=== PATIENT | female | born 1955 | race Caucasian/White ===

== ENCOUNTER 2017-06-17 06:10 | Day surgery (SDC) | payer BC ==
--- NOTE | 2017-06-10 23:32 | HP ---
HISTORY AND PHYSICAL: DATE OF OFFICE VISIT: 06/04/17 DATE OF SURGERY/ADMISSION: 06/17/17 ATTENDING SURGEON: Dr. Tracee Navarrete * (DICTATED BY JUAN JOSE MARTINS) PROCEDURE: Left knee arthroscopy with partial medial meniscectomy, possible chondroplasty, possible synovectomy. CHIEF COMPLAINT: Left knee pain. HISTORY OF PRESENT ILLNESS: The patient is a very pleasant 62-year-old female with a history of 3 weeks of severe left knee pain and she recently underwent an MRI, which showed horizontal tear in the body and horn of medial meniscus. She has tried ambulating with a cane and using Motrin; however, the pain continued and has elected to undergo an arthroscopic partial medial meniscectomy by Dr. Tracee Navarrete on 06/17/17. PAST MEDICAL HISTORY: 1. Depression. 2. Hypercholesterolemia. 3. Hypothyroidism. 4. Hypertension. 5. Asthma. 6. Obstructive sleep apnea. 7. GERD. PAST SURGICAL HISTORY: Negative. MEDICATIONS: 1. Bupropion HCl ER 300 mg 1 tablet in the morning. 2. Fluoxetine 20 mg 1 tablet by mouth daily. 3. Albuterol 0.63 mg/3 mL 1 treatment every 4 hours as needed. 4. Rabeprazole 20 mg 1 tablet in the morning. 5. Synthroid 100 mcg 1 tablet by mouth daily. 6. Montelukast sodium 10 mg 1 tablet by mouth daily. 7. Lorazepam 0.5 mg p.r.n. for anxiety. 8. Xopenex HFA 45 mcg/ACT inhaled 2 puffs by mouth ever 4 hours as needed. 9. Dymista 137/50 mcg/ACT 1 spray in each nostril daily. 10. Franca allergy medication 50 mg 1 tablet by mouth p.r.n. 11. Vitamin D supplementation 1 tablet by mouth daily. 12. Amlodipine 10 mg 1 tablet by mouth daily. 13. Symbicort 160/4.5 mcg/ACT 2 puffs twice daily. 14. Turmeric curcumin 1 tablet by mouth daily. 15. Multivitamin. ALLERGIES: CALTRATE; STATINS, which cause leg cramps. FAMILY HISTORY: Negative. SOCIAL HISTORY: The patient lives alone. Currently not working. No alcohol use, tobacco use, or current recreational drug use. REVIEW OF SYSTEMS: General: Negative for night sweats, fever, chills. No difficulty with anesthesia. HEENT: Negative for headaches, lightheadedness, or syncopal episodes. Integument: Negative for abrasions, lesions, open wounds or sores. No difficulty with healing. Cardiothoracic: Negative for chest pain, palpitations, or edema. Positive for high blood pressure. Positive for elevated cholesterol. Pulmonary: Negative for shortness of breath with exertion, chronic cough, or COPD. Positive for asthma. GI: Negative for nausea, vomiting, constipation or diarrhea. Positive for GERD. : Negative for urinary frequency, urgency. No history of UTIs or kidney problems. Musculoskeletal: Positive for left knee pain. Neuro: Negative for paresthesias, numbness. No history of seizure, stroke or epilepsy. Endocrine: Negative for diabetes. Positive for hypothyroidism. Hematologic: Negative for easy bruising, anemia, excessive bleeding. No history of DVTs or PEs. Infectious Disease: No history of MRSA, hepatitis C or HIV. PHYSICAL EXAMINATION GENERAL: Well-appearing, in no acute distress. Alert and oriented. VITAL SIGNS: Height 63.7 inches, weight 170 pounds, pulse 78, blood pressure 104/62, BMI 30.8. GAIT: Antalgic gait favoring the left knee, ambulating independently. HEENT: Normocephalic, atraumatic, EOMI. LUNGS: Clear to auscultation bilaterally. No crackles, rhonchi or wheezes. CARDIAC: Regular rate and rhythm. No murmurs, gallops or rubs. Normal S1, S2. ABDOMEN: Soft, nontender, nondistended. No organomegaly palpated. Negative CVA tenderness bilaterally. MUSCULOSKELETAL: Posterior tibial pulses 2+ bilaterally. Negative Homans sign bilaterally. Range of motion of bilateral ankles. Left knee moderate joint effusion, tenderness along the medial and lateral joint line with medial greater than lateral. No valgus or varus instability. NEUROLOGIC: Sensation intact to light touch, bilateral lower extremities. STUDIES: MRI dated 06/05/17 showed horizontal tear in the body and horn of the medial meniscus as well as popliteal cyst and patellofemoral joint arthritis. ASSESSMENT AND PLAN: The patient has elected to undergo an arthroscopic evaluation by Dr. Navarrete for her medial meniscal tear. She is scheduled to undergo left arthroscopy with partial medial meniscectomy, partial chondroplasty , partial synovectomy on 06/17/17. Dr. Navarrete went over the risks and benefits associated with the procedure. She will undergo preoperative medical clearance with her primary care doctor. She has had no other questions or concerns with regards to the procedure. JUAN JOSE MARTINS [id number]/[facility] #: [id number] MTDD
[~2017-06-17 06:10] MED LIST: Buffered Lidocaine 0.9% SYRIN* 5 ML/SYR SYRINGE INTRADERM ONE; Famotidine IV* 10 MG/ML 2 ML (20 mg) IV ONE; Morphine INJ* 2 MG/ML 1 ML CARPUJECT IV PRN; Ondansetron INJ* 2 MG/ML VIAL IV PRN; PROCHLORPERAZINE INJ 5 MG/ML 2 ML VIAL IV PRN; Scopolamine 1.5 mg* PATCH TRANSDERM PRN; fentaNYL* 50 MCG/ML 2 ML VIAL (100 MCG VIAL) IV PRN; oxyCODONE/Acetamin 5/325 MG* TAB PO PRN
[2017-06-17] MEDS ORDERED: Famotidine IV* 10 MG/ML 2 ML (20 mg) ONE (06:32)
[2017-06-17] MEDS ORDERED: Buffered Lidocaine 0.9% SYRIN* 5 ML/SYR SYRINGE ONE (06:32)
[2017-06-17] MEDS ORDERED: ceFAZolin 2 GM PREMIX (*) 50 ML IVPB ONE (06:32)
[2017-06-17] MEDS ORDERED: methylPREDNISolone ACETATE 80* 80 MG/ML 1 ML VIAL ONE (06:51)
[2017-06-17] MEDS ORDERED: EPINEPHrine AMP 1 MG/ML ONE (06:52)
[2017-06-17] MEDS ORDERED: Bupivacaine 0.5% SDV PF* 30 ML VIAL ONE (06:52)
[2017-06-17] MEDS ORDERED: fentaNYL* 50 MCG/ML 2 ML VIAL (100 MCG VIAL) ONE (07:11)
[2017-06-17] MEDS ORDERED: Midazolam* 1 MG/ML 5 ML VIAL (5 MG) ONE (07:11)
[2017-06-17 10:02] VITALS: BP 128/72
--- NOTE | 2017-06-18 04:17 | OP ---
OPERATIVE NOTE: DATE OF OPERATION: 06/17/17 DATE OF : 53 ATTENDING SURGEON: Tracee Navarrete MD CINDER CRUSHER OPERATOR: JUAN JOSE Shebly Ms. Sarah did help throughout the procedure with preparation of the leg, wound retraction, manipul ation of the knee, and wound closure. ANESTHESIOLOGIST: Dr. Doe. ANESTHESIA: Spinal. PRE-OP DIAGNOSES: Left knee medial meniscal tear, [id number] arthritic changes. POST-OP DIAGNOSES: Left knee parrot-beak type tear of the medial meniscus, bucket handle tear of th e lateral meniscus, [id number] degenerative changes. OPERATIVE PROCEDURE: Left knee arthroscopy with partial medial meniscectomy and partial lateral men iscectomy. EBL: Less than 25 cc. COMPLICATIONS: None. SPECIMEN: None. BRIEF HISTORY/INDICATION: Ms. Vizcaino is a 62-year-old female, who twisted her knees stepping down off a stair on 05/15/17 and had the acute onset of severe left knee pain with locking, clicking, an d catching. MRI showed no obvious medial meniscal tear. The patient had failed conservative treatm ent and was unable to ambulate without severe pain. She elected to undergo left knee arthroscopy wi th possible meniscectomy, possible chondroplasty, possible synovectomy. Informed consent was obtain ed from the patient. She understood the risks of surgery included, but were not limited to bleeding , infection, damage to nearby structures, continued pain, need for further surgery, re-tear of the m eniscus, stroke, heart attack, blood clot, and . She wished to proceed. INTRAOPERATIVE FINDINGS: Intraoperatively, the patient was noted to have a parrot- beak type tear i n the posterior one-third of the medial meniscus involving the white-red zone. She had a displaced bucket-handle tear of the lateral meniscus involving the white-red zone. She had grade 3 and 4 Oute rbridge cartilage changes in the medial compartment, grade 2 to 3 Outerbridge cartilage changes in t he patellar, femoral, and lateral compartment. DESCRIPTION OF PROCEDURE: Ms. Vizcaino was identified in the preanesthesia unit. Her left lower ext remity was marked as the correct operative side. Informed consent was signed and placed in the [facility] t. The patient was taken to the operating room and placed under spinal anesthesia. Left lower extr emity was prepped and draped in the usual sterile fashion. Preop time-out was made to correctly mouna ntify the patient, side, and site. Appropriate perioperative antibiotics were given within 1 hour o f incision. A 1.5 cm standard anterolateral portal incision was made in the anterolateral joint line. Trocar wa s introduced. As soon as the light and water sources were turned on, there was immediate visualizat ion of the suprapatellar pouch. A tour of the knee joint was performed. Suprapatellar pouch had no obvious abnormalities. Grade 2 and 3 minimal degenerative changes in the patellofemoral compartmen t and trochlear groove of the femur. Medial gutter showed no significant plica or loose body. Medi al compartment showed grade 3 and 4 Outerbridge cartilage changes mainly affecting the medial femora l condyle. An anteriorly displaced parrot-beak type tear of the posterior medial meniscus was noted . ACL and PCL appeared to be intact. The knee was placed in [id number] position. Visualizatio n of the lateral compartment was severely limited. It was noted that this was due to a displaced bu cket-handle type tear of the lateral meniscus into the intercondylar notch region. Lateral gutters had no plica or loose bodies. Under direct visualization, a medial portal incision was made with a 15 blade. The probe was introd uced. Displaced lateral bucket-handle tear was reduced back into the lateral compartment. Shaver w as placed in the anterior aspect of the knee joint. Soft tissue and synovitis was carefully cleared for a better view. Straight biter and shaver were used to perform partial medial meniscectomy. Thi s was an anteriorly displaced parrot-beak type tear involving the posterior one-third of the medial meniscus in the red-white zone. A smooth border of the medial meniscus was easily obtained. Probin g of the medial meniscus showed no additional tears. Straight biter and shaver were then used to perform partial lateral meniscectomy. A smooth border of the lateral meniscus was obtained in the white-red zone. This bucket-handle type tear involved the majority of the lateral meniscus. Probing of the lateral meniscus showed no further displaceable t ears. Some grade 2 and 3 Outerbridge cartilage changes were noted in the lateral compartment along the lateral tibial plateau. The knee was copiously irrigated with sterile saline. All instruments were carefully removed. Inci sions were closed using interrupted 3-0 nylon suture. Intraarticular injection of 80 mg of Depo-Medr ol and 6 cc of 0.25% Marcaine was placed in the knee joint. The patient's incisions were covered wi th Xeroform, 4x4s, and Webril. Mario wrap and cold pack were placed over this. The patient's anesthesia was reversed without difficulty. She was taken to the PACU in stable condi tion. Intended weightbearing will be weightbearing as tolerated. Intended DVT prophylaxis will be aspirin. [id number]/[facility] #: [id number]
[2017-06-20] MEDS ORDERED: Scopolomine PATCH Remove* 1 NOTE MISC PATCH OFF ONE (05:37)
== END 2017-06-17 10:38 | disposition home or self-care (01) ==
LOC: OR 06:10
PROVIDERS: ATTEND Orthopaedic Surgery Adult Reconstructive Orthopaedic Surgery
DX: S83.242A Other tear of medial meniscus, current injury, left knee, initial encounter (principal); S83.282A Other tear of lateral meniscus, current injury, left knee, initial encounter; W10.9XXA Fall (on) (from) unspecified stairs and steps, initial encounter; Y92.9 Unspecified place or not applicable; M17.12 Unilateral primary osteoarthritis, left knee; E03.9 Hypothyroidism, unspecified; I10 Essential (primary) hypertension; G47.33 Obstructive sleep apnea (adult) (pediatric); J45.909 Unspecified asthma, uncomplicated; Z79.899 Other long term (current) drug therapy
CPT/HCPCS: J0171; J0690; J1040; J2250; J3010